=== PATIENT | male | born 1970 | race Two or more races ===

== ENCOUNTER → 2017-07-31 | Day surgery (SDC) | payer OTHER ==
[~2017-07-31] MED LIST: LIDOCAINE 1% PF 2 ML VIAL. ID; LIDOCAINE 2% PF Vial for OR 5 ML VIAL.; MIDAZOLAM HCL/PF 2 MG/2 ML VIAL. IV; PROPOFOL 20 ML IV; fentaNYL PF VIAL 100 MCG/2 ML VIAL IV
[2017-07-31] MEDS: IV RINGERS,LACTATED 1000ML 1,000 ML IV (09:03)
== END ==
LOC: SURG 08:34
DX: K21.0 Gastro-esophageal reflux disease with esophagitis (principal); K44.9 Diaphragmatic hernia without obstruction or gangrene; K31.89 Other diseases of stomach and duodenum; K29.50 Unspecified chronic gastritis without bleeding; F41.9 Anxiety disorder, unspecified; I25.10 Atherosclerotic heart disease of native coronary artery without angina pectoris; E66.9 Obesity, unspecified; M19.90 Unspecified osteoarthritis, unspecified site; Z79.82 Long term (current) use of aspirin; Z79.899 Other long term (current) drug therapy; Z98.890 Other specified postprocedural states; Z68.42 Body mass index [BMI] 45.0-49.9, adult
CPT/HCPCS: 43239; 88305; 88342; J2704

== ENCOUNTER → 2020-06-26 | Outpatient (CLI) | payer OTHER ==
[2017-07-31 10:19] VITALS: BP 125/78
[~2020-06-26] VITALS: Ht 180.3 cm; Wt 122.5 kg
[~2020-06-26] MED LIST changes: +ALLO100T PO; -LIDOCAINE 1% PF 2 ML VIAL. ID; -LIDOCAINE 2% PF Vial for OR 5 ML VIAL.; -MIDAZOLAM HCL/PF 2 MG/2 ML VIAL. IV; +NORMAL SALINE IV ONE; +OMEP-203 PO; +OMEP40CA45 PO; +PREG50CA91 PO; -PROPOFOL 20 ML IV; +SINCALIDE IV ONE; -fentaNYL PF VIAL 100 MCG/2 ML VIAL IV
--- NOTE | 2020-06-26 10:50 | RAD ---
EXAM: Abdomen sonogram. HISTORY: Epigastric pain. TECHNIQUE: Sonographic imaging of the abdomen was performed. COMPARISON: None. FINDINGS: The exam is limited due to patient body habitus. There is hepatomegaly and hepatic steatosi s. No focal hepatic lesion is seen. The common bile duct is obscured. The gallbladder, right kidney, pancreas, and inferior vena cava are partially obscured. There is no convincing ascites. IMPRESSION: 1. Significantly limited exam due to body habitus. The abdominal visceral and vascular structures are predominantly obscured. 2. Hepatomegaly and hepatic steatosis. Electronically signed by: Dominique Stevens MD (06/26/2020 10:48 AM) [id number]
--- NOTE | 2020-06-26 13:55 | RAD ---
EXAM: Nuclear hepatobiliary scan. HISTORY: Pain. TECHNIQUE: Following intravenous administration of 5.5 mCi Tc 99m Choletec, anterior images of the ab domen were obtained at five minute intervals through one hour. Subsequently, 2.46 mcg sincalide was a dministered and additional images to assess gallbladder ejection fraction were obtained. FINDINGS: There is prompt radiotracer uptake by the liver. No focal defect is seen. There is normal e xcretion into the biliary tree. The gallbladder is visualized within 10 minutes and there is free gillian w into the duodenum. The gallbladder ejection fraction is decreased at 19 percent. IMPRESSION: Decreased gallbladder ejection fraction of 19 percent. Electronically signed by: Dominique Stevens MD (06/26/2020 1:52 PM) [id number]
== END ==
LOC: US 09:53
PROVIDERS: ATTEND Internal Medicine Gastroenterology
DX: K76.0 Fatty (change of) liver, not elsewhere classified (principal); R16.0 Hepatomegaly, not elsewhere classified
CPT/HCPCS: 76705; 78227; A9537; J2805

== ENCOUNTER → 2020-07-21 | Outpatient (CLI) | payer OTHER ==
[2017-07-31 10:19] VITALS: BP 125/78
[~2020-07-21] MED LIST changes: -NORMAL SALINE IV ONE; -SINCALIDE IV ONE
== END ==
LOC: LAB 15:22
PROVIDERS: ATTEND Surgery
DX: Z01.812 Encounter for preprocedural laboratory examination (principal); K82.8 Other specified diseases of gallbladder; Z20.822 Contact with and (suspected) exposure to COVID-19
CPT/HCPCS: U0003; U0005

== ENCOUNTER 2020-07-24 08:30 | Day surgery (SDC) | payer OTHER ==
[~2020-07-24] VITALS: Ht 180.3 cm; Wt 145.0 kg
[~2020-07-24 08:30] MED LIST changes: +HYDROmorphone 2 MG/ML VIAL IVP PRN; +IV RINGERS,LACTATED 1000ML 1,000 ML IV SCH; +MORPHINE SULFATE 2 MG/ML VIAL. IVP PRN; +PROCHLORPERAZINE 10 MG/2 ML VIAL. IVP PRN; +ceFAZolin SODIUM 3 GM in IV DEXTROSE 5% 100ML 100 ML IV PRN; +fentaNYL PF VIAL 100 MCG/2 ML VIAL IVP PRN
[2020-07-24] MEDS ORDERED: DEXAMETHASONE SOD PHOS 4 MG/ML VIAL ONE (08:49)
[2020-07-24] MEDS ORDERED: PROPOFOL 10 MG/ML (20ML) VIAL. IV ONE ×2 (08:49→11:04)
[2020-07-24] MEDS ORDERED: LIDOCAINE 2% PF 5 ML VIAL. ONE (08:49)
[2020-07-24] MEDS ORDERED: ONDANSETRON PF 4 MG/2 ML VIAL. ONE (08:49)
[2020-07-24] MEDS ORDERED: ROCURONIUM 50 MG/5 ML VIAL. ONE (08:50)
[2020-07-24] MEDS ORDERED: fentaNYL PF VIAL 100 MCG/2 ML VIAL ONE ×2 (08:50→11:39)
[2020-07-24] MEDS ORDERED: SUCCINYLCHOLINE 200 MG/10 ML VIAL. ONE (08:50)
[2020-07-24 08:55] VITALS: BP 178/102
[2020-07-24] MEDS ORDERED: IOHEXOL 300 MG/ML 50 ML VIAL. ONE (10:29)
[2020-07-24] MEDS ORDERED: SURGICEL HEMOSTAT 4X8 EACH. ONE (10:30)
[2020-07-24] MEDS ORDERED: BUPIVACAINE MPF 0.5% 30 ML VIAL. ONE (10:30)
[2020-07-24] MEDS ORDERED: KETOROLAC 30 MG/ML VIAL. ONE (11:34)
[2020-07-24] MEDS ORDERED: DEXAMETHASONE SOD PHOS 20 MG/5 ML VIAL. ONE (11:35)
[2020-07-24] MEDS ORDERED: SEVOFLURANE 61 TO 120 MINUTES. IH ONE (11:40)
[2020-07-24] MEDS ORDERED: NEOSTIGMINE METHYLSULFATE 5 MG/5 ML SYRINGE. ONE (11:44)
[2020-07-24] MEDS ORDERED: GLYCOPYRROLATE 1 MG/5 ML VIAL. ONE (11:45)
--- NOTE | 2020-07-24 11:45 | RAD ---
EXAM: Intraoperative cholangiogram. HISTORY: Cholecystectomy. COMPARISON: 06/26/2020. FINDINGS: 3 fluoroscopic images were obtained during an intraoperative cholangiogram. The images demo nstrate contrast opacification of the biliary tree. No retained stone is seen. The total fluoroscopy time is 0.18 minutes. IMPRESSION: Intraoperative cholangiogram without evidence of a retained stone. Electronically signed by: Dominique Stevens MD (07/24/2020 11:43 AM) [id number]
--- NOTE | 2020-07-24 12:11 | PDOC4 ---
Operative Note Operative Note Operative Note: Preoperative Diagnosis: Biliary dyskinesia Postoperative Diagnosis: Same Procedure: Laparoscopic cholecystectomy with intraoperative cholangiogram Surgeons: Davi Anesthesia: Gen. Estimated Blood Loss: 10 mL Specimen: Gallbladder to pathology Drains: None Complications: None Indications: The patient is a 49-year-old male who is referred with a diagnosis of biliary dyskinesia. Surgical treatment was offered by means of a laparoscopic cholecystectomy. The risks of surgery were discussed which include bleeding, infection, bile duct injury, bile leak, pain, the potential for additional surgeries or procedures. The patient understands and would like to proceed. Description: The patient was taken to the operating room and laid supine on the operating table. General anesthesia was performed. The abdomen was prepped with ChloraPrep and draped in a standard surgical fashion. A small supraumbilical incision was made with a scalpel. The Veress needle was then inserted and a pneumoperitoneum was then created. A 5 mm trocar was then inse rted and the laparoscope was introduced. In the upper midabdomen a 5 mm trocar was inserted and in the right upper quadrant one 5 mm trocar and one 2.3 mm mini lap grasper were inserted. The gallbladder was retracted cephalad. The cystic duct was dissected free from surrounding tissues. One clip was placed on the duct near the gallbladder junction. An opening was made in the duct and a cholangiocatheter placed within and secured with a clip. Using contrast dye and fluoroscopy an intraoperative cholangiogram was performed that appeared unremarkable. The clip and catheter were then withdrawn. Three clips were placed on the cystic duct and it was divided. The cystic artery was then identified, dissected free, doubly clipped and divided as well. The gallbladder was then mobilized away from the liver with cautery. The umbilical 5 millimeter trocar was exchanged for an 11 millimeter trocar. The gallbladder was then placed in an endoscopic bag and extracted at the umbilical trocar site. The fascia there was closed with an 0 Vicryl suture and infiltrated with 0.5% marcaine. All blood and irrigation fluid was suctioned and hemostasis was good. The remaining ports were removed and the pneumoperitoneum was relieved. The skin incisions were closed using 4-0 Monocryl suture. Steri-Strips and dressings were then applied. The patient tolerated the procedure well and was sent to the recovery room in stable condition. At the end of the case all counts were correct. PERLA PANTOJA MD July 24, 2020 12:11
--- NOTE | 2020-07-24 12:15 | DISCH ---
DISCHARGE INSTRUCTIONS Condition on Discharge Condition on Discharge: Stable Activity After Discharge Activity Instructions for Disc: Other, see below (no lifting over 20 lbs X 2 weeks) Diet after Discharge Diet after Discharge: Regular Wound Incision Care Wound/Incision Care: Other, see below (may remove bandaids and shower tomorrow) Follow-Up Follow up with: Dr Pantoja in office in 2 weeks, call for appointment [phone] PERLA PANTOJA MD July 24, 2020 12:15
[2020-07-24] MEDS ORDERED: MORPHINE SULFATE 2 MG/ML VIAL. ONE (12:29)
[2020-07-24 12:55] VITALS: BP 155/85
[2020-07-24] MEDS ORDERED: oxyCODONE/APAP 5/325 1 TAB TABLET ONE (13:09)
--- NOTE | 2020-07-25 19:13 | PATHOLOGY ---
[facility] Accession Number: [id number] . 01 Material submitted: . gallbladder - GALLBLADDER . 01 Clinical history: . BILIARY DYSKINESIA LAP RENETTA W GRAMS . 02 Diagnosis: Gallbladder, laparoscopic cholecystectomy: - Cholesterolosis, focal. - Chronic cholecystitis. (FLORM:soraya; 07/25/2020) R 07/25/2020 1603 Local . 02 Comment: There are no calculi identified within the gallbladder lumen or specimen container. There is no evidence of malignancy. (FLORM:soraya; 07/25/2020) . 02 Electronically signed: . Abe Huerta MD, Pathologist NPI- [id number] . 01 Gross description: . Fixative: formalin Labeled: gallbladder Specimen received: partially collapsed Dimensions: 8 x 3 x 2.7 cm Serosa: smooth arndt green Lymph node: not identified Mucosa: velvety-green Average wall thickness: 0.6 cm Calculi: None Abnormalities: None . Skiing Instructor body, fundus, and the cystic duct margin in cassette A1. ([facility]; 07/24/2020) RAVEN/RAVEN 07/24/20207 Local . 02 Pathologist provided ICD-10: K80.10 . 02 CPT . 668548 Specimen Comment: A courtesy copy of this report has been sent to [phone] Specimen Comment: Report sent to Performed at: 01 [facility] [address], [place] [id number] MD Jordan Delvalle MD Phone: [phone] Performed at: 02 [facility] [address] [place], [place] [id number] MD Abe Huerta MD Phone: [phone]
== END 2020-07-24 13:30 | disposition home or self-care (01) ==
LOC: SURG 08:30
PROVIDERS: ATTEND Surgery
DX: K80.10 Calculus of gallbladder with chronic cholecystitis without obstruction (principal); I25.10 Atherosclerotic heart disease of native coronary artery without angina pectoris; G47.30 Sleep apnea, unspecified; M19.90 Unspecified osteoarthritis, unspecified site; M10.9 Gout, unspecified; E66.9 Obesity, unspecified; F41.9 Anxiety disorder, unspecified; Z79.899 Other long term (current) drug therapy; Z98.890 Other specified postprocedural states
CPT/HCPCS: 47563; 74300; A4213; A4314; A4364; A4556; A4930; A6219; C1887; J0330; J1100; J1885; J2270; J2405; J2704; J2710; J3010; J3490; Q9967; A4452; A4657

== ENCOUNTER → 2020-10-25 | Day surgery (SDC) | payer OTHER ==
[~2020-10-25] VITALS: Ht 180.3 cm; Wt 146.0 kg
[~2020-10-25] MED LIST changes: +GLYCOPYRROLATE 1 MG/5 ML VIAL. ONE; -HYDROmorphone 2 MG/ML VIAL IVP PRN; +LIDOCAINE 2% PF 5 ML VIAL. ONE; -MORPHINE SULFATE 2 MG/ML VIAL. IVP PRN; -OMEP40CA45 PO; +OMEP40CA7 PO; -PROCHLORPERAZINE 10 MG/2 ML VIAL. IVP PRN; +PROPOFOL 10 MG/ML (20ML) VIAL. IV ONE; -ceFAZolin SODIUM 3 GM in IV DEXTROSE 5% 100ML 100 ML IV PRN; -fentaNYL PF VIAL 100 MCG/2 ML VIAL IVP PRN
[2020-10-25 07:26] VITALS: BP 139/86
[2020-10-25 09:01] VITALS: BP 140/83
== END | disposition home or self-care (01) ==
LOC: ENDOS 06:51
PROVIDERS: ATTEND Internal Medicine Gastroenterology
DX: K92.1 Melena (principal); K64.0 First degree hemorrhoids; K63.89 Other specified diseases of intestine; I25.10 Atherosclerotic heart disease of native coronary artery without angina pectoris; G47.30 Sleep apnea, unspecified; E66.9 Obesity, unspecified; K21.9 Gastro-esophageal reflux disease without esophagitis; M19.90 Unspecified osteoarthritis, unspecified site; F41.9 Anxiety disorder, unspecified; M10.9 Gout, unspecified; Z90.49 Acquired absence of other specified parts of digestive tract; Z98.890 Other specified postprocedural states; Z79.899 Other long term (current) drug therapy
CPT/HCPCS: 45378; J2704; J3490